=== PATIENT | female | born 1980 | race African-American/Black ===

== ENCOUNTER 2022-09-30 23:00 | Emergency (ER) | payer MEDICAID, OTHER ==
[~2022-09-30] VITALS: Ht 188 cm; Wt 190.1 kg
--- NOTE | 2022-09-30 23:20 | NUR ---
BIBF FROM HOME WITH CC OF LEFT LOWER QUADRANT PAIN. STARTED 1 HR AGO, TOOK IBUPROFEN 800MG WITH NO RELIEF, HX OF DIVERTICULITIS, DM AND THALASSEMIA. PATIENT IS AOX4. ABLE TO MAKE NEEDS KNOWN. PAIN SCALE OF 10/10. PLACED COMFORTABLY IN BED. VITALS CHECKED.
--- NOTE | 2022-09-30 23:35 | NUR ---
18GA TO LEFT HAND ESTABLISHED; BLOOD WORK COLLECTED AND GIVEN TO HOSPITALIST
--- NOTE | 2022-09-30 23:44 | NUR ---
URINE COLLECTED, SENT TO LAB
--- NOTE | 2022-09-30 23:44 | NUR ---
WAIVER SIGNED THAT SHE IS NOT . CALLED RADIOLOGY DEPT FOR PT'S CT
[2022-09-30 23:47] LABS: BASOPHILS # (AUTO) 0.1 K/uL (0.0-0.2); BASOPHILS % (AUTO) 0.5 % (0.0-2.0); EOSINOPHILS % (AUTO) 0.5 % (0.0-6.0); HEMATOCRIT 31 % (33-45); HEMOGLOBIN 8.6 g/dL (11.5-14.8); LYMPHOCYTES % (AUTO) 18.8 % (20.0-44.0); MEAN CORPUSCULAR HGB CONC 28 g/dl (31.0-36.0); MEAN CORPUSCULAR VOLUME 58 fL (82-100); MONOCYTES # (AUTO) 0.8 K/uL (0.1-1.30); MONOCYTES % (AUTO) 8.1 % (2.0-12.0); NEUTROPHILS # (AUTO) 7.5 K/uL (1.8-8.9); NEUTROPHILS % (AUTO) 72.1 % (43.0-81.0); PLATELET COUNT (AUTO) 536 K/uL (150-450); RED BLOOD CELL COUNT(AUTO) 5.33 MIL/uL (4.0-5.2); WHITE BLOOD COUNT (AUTO) 10.4 K/uL (4.3-11.0)
--- NOTE | 2022-09-30 23:58 | NUR ---
PT TAKEN TO CT
--- NOTE | 2022-10-01 00:09 | NUR ---
PT BACK FROM CT
[2022-10-01 00:11] LABS: CALCIUM, SERUM 8.9 mg/dL (8.5-10.1); CREATININE 0.7 mg/dL (0.6-1.3)
[2022-10-01 00:15] LABS: BILIRUBIN,URINE 1+ (NEGATIVE); COLOR,URINE YELLOW (YELLOW); LEUKOCYTE ESTERASE ,URINE 1+ (NEGATIVE); NITRITE, URINE NEGATIVE (NEGATIVE); PH,URINE 5.5 (5.0-8.0); PROTEIN,URINE NEGATIVE (NEGATIVE); UGLUCOSE NEGATIVE (NEGATIVE)
[2022-10-01 00:17] LABS: ALBUMIN 3.2 g/dL (3.4-5.0); BILIRUBIN,DIRECT 0.1 mg/dL (0.0-0.2); BILIRUBIN,TOTAL 0.4 mg/dL (0.2-1.0)
[2022-10-01] MEDS: KETOROLAC TROMETHAMINE INJ 30 MG/ML VIAL IV ONE ×3 (01:00→02:00)
--- NOTE | 2022-10-01 01:15 | NUR ---
TORADOL NOT GIVEN; PATIENT REMOVED OWN IV, REQUESTED TO LEAVE. MADE AWARE.
--- NOTE | 2022-10-01 01:15 | NUR ---
PT REQUESTED TO LEAVE AMA, BUT REFUSED TO SIGN APPROPRIATE FORM.
--- NOTE | 2022-10-01 01:39 | NUR ---
PT REQUESTED DAUGHTER TO HELP HER TO WHEELCHAIR, REFUSES TO LET ANYONE ELSE HELP HER. DAUGHTER AT BEDSIDE, HELPED PATIENT TO GET TO WHEELCHAIR TO BRING PATIENT TO THE CAR.
--- NOTE | 2022-10-01 01:45 | NUR ---
DAUGHTER SPOKE WITH NURSE HOUSE DETECTIVE. BOTH PATIENT AND DTR AGREED TO THE PLAN FOR PATIENT TO STAY AND RECEIVE PAIN MEDICATION.
[2022-10-01] MEDS ORDERED: KETOROLAC TROMETHAMINE 15 MG/ML VIAL ONE (01:59)
--- NOTE | 2022-10-01 02:05 | NUR ---
20GA TO LEFT HAND ESTABLISHED. IV PAIN MEDICATION ADMINISTERED. DAUGHTERS AT BEDSIDE.
[2022-10-01 02:13] LABS: BACTERIA,URINE Rare /HPF (None Seen); SQUAMOUS EPITHELIAL CELL,UR Few /HPF (None Seen)
[2022-10-01] MEDS ORDERED: MORPHINE SULFATE INJ 2 MG/ML DISP.SYRIN ONE (02:30)
[2022-10-01] MEDS ORDERED: MORPHINE SULFATE INJ 2 MG/ML DISP.SYRIN IV ONE (02:30)
[2022-10-01] MEDS ORDERED: OXYC5CAP18 PO (04:03)
[2022-10-01] MEDS ORDERED: CEPH500C2 PO (04:10)
[2022-10-01 04:30] VITALS: BP 149/92
--- NOTE | 2022-10-01 04:30 | NUR ---
Patient discharged to home in stable condition. Written and verbal after care instructions given. Patient verbalizes understanding of instruction. IV removed. Catheter intact and site benign. Pressure and 4x4 applied to site. No bleeding noted.
== END 2022-10-01 04:31 | disposition home or self-care (01) ==
LOC: ER 23:01
DX: D64.9 Anemia, unspecified (principal); R82.81 Pyuria; R31.9 Hematuria, unspecified; R10.32 Left lower quadrant pain; I48.91 Unspecified atrial fibrillation; E11.9 Type 2 diabetes mellitus without complications; Z98.890 Other specified postprocedural states; Z79.899 Other long term (current) drug therapy
CPT/HCPCS: 99285; 74176; 85025; 80048; 87086 ×2; 83690; 80076; 81001; 36415; 96374; 96375; J2270; J1885

== ENCOUNTER 2023-12-11 16:54 | Inpatient (IN) | payer OTHER ==
[~2023-12-11] VITALS: Ht 188 cm; Wt 202.8 kg
[~2023-12-11 16:54] MED LIST: CEPH500C2 PO; OXYC5CAP18 PO
[2023-12-11 17:52] LABS: BASOPHILS % (AUTO) 0.3 % (0.0-2.0); EOSINOPHILS # (AUTO) 0.1 K/uL (0.0-0.7); EOSINOPHILS % (AUTO) 0.6 % (0.0-6.0); HEMATOCRIT 27 % (33-45); HEMOGLOBIN 7.6 g/dL (11.5-14.8); LYMPHOCYTES # (AUTO) 1.6 K/uL (0.8-4.8); LYMPHOCYTES % (AUTO) 16.9 % (20.0-44.0); MEAN CORPUSCULAR HEMOGLOBIN 16 PG (26.0-33.0); MEAN CORPUSCULAR HGB CONC 28 g/dl (31.0-36.0); MEAN CORPUSCULAR VOLUME 56 fL (82-100); MONOCYTES # (AUTO) 0.7 K/uL (0.1-1.30); MONOCYTES % (AUTO) 7.2 % (2.0-12.0); NEUTROPHILS # (AUTO) 7.2 K/uL (1.8-8.9); PLATELET COUNT (AUTO) 497 K/uL (150-450); RED BLOOD CELL COUNT(AUTO) 4.78 MIL/uL (4.0-5.2); RED CELL DISTRIBUTION WIDTH 21.1 % (11.5-15.0); WHITE BLOOD COUNT (AUTO) 9.6 K/uL (4.3-11.0)
[2023-12-11 18:01] LABS: CALCIUM, SERUM 8.6 mg/dL (8.5-10.1); CARBON DIOXIDE 24 mmol/L (21-32); CHLORIDE 103 mmol/L (98-107); CREATININE 0.7 mg/dL (0.6-1.3); GLUCOSE 192 mg/dL (74-106); POTASSIUM 3.9 mmol/L (3.5-5.1); SODIUM SERUM 135 mmol/L (136-145); UREA NITROGEN, BLOOD 8 mg/dL (7-18)
[2023-12-11] MEDS ORDERED: ASPIRIN 325 MG TABLET ONE (18:10)
[2023-12-11] MEDS: ASPIRIN 325 MG TABLET PO ONE (18:15)
[2023-12-11 18:18] LABS: ALANINE AMINOTRANSFERASE 14 U/L (12-78); ALBUMIN 3.1 g/dL (3.4-5.0); ALKALINE PHOSPHATASE 67 U/L (46-116); ASPARTATE AMINOTRANSFERASE 11 U/L (15-37); BILIRUBIN,DIRECT 0.1 mg/dL (0.0-0.2); BILIRUBIN,TOTAL 0.3 mg/dL (0.2-1.0); NT-PRO BNP 787 pg/mL (0-125); TOTAL PROTEIN, SERUM 7.5 g/dL (6.4-8.2)
[2023-12-11] MEDS ORDERED: DILT120C51 PO (18:43)
[2023-12-11] MEDS ORDERED: INSU100I26 SQ (18:43)
[2023-12-11] MEDS ORDERED: DIGO125T PO (18:43)
[2023-12-11] MEDS ORDERED: FURO40TA5 PO (18:43)
[2023-12-11] MEDS ORDERED: [UNRECOGNIZED DRUG - CODE] PO (18:43)
[2023-12-11] MEDS ORDERED: METH10TA7 PO (18:43)
[2023-12-11] MEDS ORDERED: DULA1.5P SQ (18:43)
[2023-12-11] MEDS ORDERED: GABA800T11 PO (18:43)
[2023-12-11] MEDS ORDERED: SEMA1PEN SQ (18:43)
[2023-12-11] MEDS ORDERED: ACET-2605 PO (18:43)
[2023-12-11] MEDS ORDERED: LISI-768 PO (18:43)
[2023-12-11] MEDS ORDERED: APIX5TAB PO (18:43)
[2023-12-11] MEDS ORDERED: GLIP10TA11 PO (18:43)
[2023-12-11] MEDS ORDERED: INSU100I14 SQ (18:43)
[2023-12-11] MEDS ORDERED: EMPA10TA PO (18:43)
[2023-12-11 19:15] LABS: LYMPHOCYTES % (MANUAL) 18 % (16-48); MONOCYTES % (MANUAL) 7 % (0-11.0); NEUTROPHILS % (MANUAL) 75 (42-76)
[2023-12-11 19:16] LABS: ANISOCYTOSIS 1+; HYPOCHROMASIA 1+; PLATELET ESTIMATE INCRE
[2023-12-11 19:18] LABS: OVALOCYTES 1+; STOMATOCYTES 1+; TARGET CELLS 1+
[2023-12-11] MEDS ORDERED: FUROSEMIDE 40 MG/4 ML VIAL ONE (20:01)
[2023-12-11] MEDS: FUROSEMIDE 40 MG/4 ML VIAL IV ONE (20:07)
[2023-12-11 20:15] VITALS: O2SAT 100
[2023-12-11] MEDS ORDERED: MAGNESIUM HYDROXIDE 30 ML UDC PO PRN (21:00)
[2023-12-11] MEDS ORDERED: Z GUARD REMEDY 4 OZ OINT TP PRN (21:00)
[2023-12-11] MEDS ORDERED: ENOXAPARIN SODIUM 40 MG/0.4 ML DISP.SYRIN SQ SCH (21:00)
[2023-12-11] MEDS ORDERED: ACETAMINOPHEN 325 MG TABLET PO PRN (21:00)
[2023-12-11] MEDS ORDERED: Medication Not On Formulary EA (Semaglutide (Ozempic) 1 MG) SQ SCH (21:30)
[2023-12-11] MEDS ORDERED: DULAGLUTIDE 4.5 MG SQ SCH (21:30)
[2023-12-11] MEDS ORDERED: *INSULIN REGULAR(HUMULIN R)HUM 100 UNIT/ML VIAL SQ PRN (22:00)
[2023-12-11] MEDS ORDERED: NITROGLYCERIN PACKET 1 GM PACKET TOP PRN (22:00)
[2023-12-11] MEDS ORDERED: INSULIN REGULAR, HUMAN 100 UNIT/ML 3 ML VIAL SQ SCH (22:00)
[2023-12-11] MEDS ORDERED: DEXTROSE 50%-WATER 50 ML DISP.SYRIN IV PRN (22:00)
[2023-12-11] MEDS: INSULIN GLARGINE, 100 UNIT/ML CARTRIDGE SQ SCH (22:00)
[2023-12-11] MEDS: BLOOD SUGAR DIAGNOSTIC 1 EACH STRIP IN SCH (22:41)
[2023-12-11] MEDS: ZOLPIDEM TARTRATE 5 MG TABLET PO PRN (23:00)
[2023-12-12 00:28] VITALS: BP 104/46; TEMP 98.8; O2SAT 95
[2023-12-12 04:28] VITALS: BP 121/68; TEMP 98.6; O2SAT 98
[2023-12-12] MEDS: GABAPENTIN 400 MG CAPSULE PO SCH (05:31)
[2023-12-12] MEDS: INSULIN REGULAR, HUMAN 100 UNIT/ML 3 ML VIAL SQ PRN (06:14)
[2023-12-12 07:00] VITALS: BP 115/59; TEMP 97.9; O2SAT 99
[2023-12-12 07:13] LABS: BASOPHILS % (AUTO) 0.2 % (0.0-2.0); EOSINOPHILS # (AUTO) 0.1 K/uL (0.0-0.7); EOSINOPHILS % (AUTO) 0.6 % (0.0-6.0); HEMATOCRIT 26 % (33-45); HEMOGLOBIN 7.8 g/dL (11.5-14.8); LYMPHOCYTES # (AUTO) 1.4 K/uL (0.8-4.8); LYMPHOCYTES % (AUTO) 16.7 % (20.0-44.0); MEAN CORPUSCULAR HEMOGLOBIN 17 PG (26.0-33.0); MEAN CORPUSCULAR HGB CONC 30 g/dl (31.0-36.0); MEAN CORPUSCULAR VOLUME 56 fL (82-100); MONOCYTES # (AUTO) 0.6 K/uL (0.1-1.30); NEUTROPHILS # (AUTO) 6.5 K/uL (1.8-8.9); NEUTROPHILS % (AUTO) 75.5 % (43.0-81.0); PLATELET COUNT (AUTO) 480 K/uL (150-450); RED BLOOD CELL COUNT(AUTO) 4.71 MIL/uL (4.0-5.2); RED CELL DISTRIBUTION WIDTH 21.5 % (11.5-15.0); WHITE BLOOD COUNT (AUTO) 8.6 K/uL (4.3-11.0)
[2023-12-12 07:21] LABS: CHOLESTEROL 158 mg/dL (<200); HDL CHOLESTEROL 47 mg/dL (40-60); LDL 94 mg/dL (0-99); TRIGLYCERIDES 94 mg/dL (30-150)
[2023-12-12 07:33] LABS: ALANINE AMINOTRANSFERASE 13 U/L (12-78); ALBUMIN 2.6 g/dL (3.4-5.0); ALKALINE PHOSPHATASE 72 U/L (46-116); ASPARTATE AMINOTRANSFERASE 17 U/L (15-37); BILIRUBIN,DIRECT 0.1 mg/dL (0.0-0.2); BILIRUBIN,TOTAL 0.3 mg/dL (0.2-1.0); CALCIUM, SERUM 8.6 mg/dL (8.5-10.1); CARBON DIOXIDE 26 mmol/L (21-32); CHLORIDE 102 mmol/L (98-107); CREATININE 0.6 mg/dL (0.6-1.3); GLUCOSE 186 mg/dL (74-106); MAGNESIUM 1.6 mg/dL (1.8-2.4); NT-PRO BNP 585 pg/mL (0-125); PHOSPHORUS 5.1 mg/dL (2.5-4.9); SODIUM SERUM 135 mmol/L (136-145); TOTAL PROTEIN, SERUM 7.3 g/dL (6.4-8.2); UREA NITROGEN, BLOOD 6 mg/dL (7-18)
[2023-12-12] MEDS: PANTOPRAZOLE 40 MG TABLET.DR PO SCH (07:39)
[2023-12-12] MEDS: FUROSEMIDE 20 MG/2 ML VIAL IV SCH (08:43)
[2023-12-12] MEDS: LISINOPRIL (5MG) 5 MG TABLET PO SCH (08:44)
[2023-12-12] MEDS: PREGABALIN 25 MG CAPSULE PO SCH (08:44)
[2023-12-12] MEDS: METHIMAZOLE (5MG) 5 MG TABLET PO SCH (08:44)
[2023-12-12] MEDS: glipiZIDE 10 MG TABLET PO SCH (08:45)
[2023-12-12] MEDS: DILTIAZEM HCL CD 120 MG PO SCH (08:45)
[2023-12-12] MEDS: ASPIRIN 81 MG TAB.CHEW PO SCH (08:45)
[2023-12-12] MEDS: DIGOXIN 0.125 MG TABLET PO SCH (08:45)
[2023-12-12] MEDS: PREGABALIN 100 MG CAPSULE PO SCH (08:46)
[2023-12-12] MEDS: EMPAGLIFLOZIN 10 MG TABLET PO SCH (08:46)
[2023-12-12] MEDS: APIXABAN 5 MG TABLET PO SCH (08:52)
[2023-12-12 10:58] LABS: IRON, SERUM 12 ug/dl (50-175); TOTAL IRON BINDING CAPACITY 364 ug/dl (250-450)
[2023-12-12 11:10] LABS: FERRITIN 8 ng/mL (8-388)
[2023-12-12 11:15] LABS: PREGNANCY TEST URINE QUAL NEGATIVE (NEGATIVE)
[2023-12-12 12:00] VITALS: BP 105/62; TEMP 97.9; O2SAT 98
[2023-12-12] MEDS: MAGNESIUM OXIDE 400 MG TABLET PO ONE (12:01)
[2023-12-12] MEDS: ONDANSETRON HCL/PF 4 MG/2 ML VIAL IVP PRN (13:10)
[2023-12-12] MEDS: MAG HYDROX/AL HYDROX/SIMETH 30 ML UDC PO PRN (13:35)
[2023-12-12 16:00] VITALS: BP 101/67; TEMP 97.9; O2SAT 98
[2023-12-12 20:00] VITALS: BP 99/66; TEMP 97.9; O2SAT 99
[2023-12-13] VITALS: BP 89/56; TEMP 98.2; O2SAT 95
[2023-12-13 04:00] VITALS: BP 109/65; TEMP 97.9; O2SAT 99
[2023-12-13 07:48] LABS: CALCIUM, SERUM 9.1 mg/dL (8.5-10.1); CREATININE 0.7 mg/dL (0.6-1.3); MAGNESIUM 2.2 mg/dL (1.8-2.4); PHOSPHORUS 5.3 mg/dL (2.5-4.9); POTASSIUM 3.9 mmol/L (3.5-5.1)
[2023-12-13 08:00] VITALS: BP 110/63; TEMP 98.8; O2SAT 98
[2023-12-13 08:00] LABS: BASOPHILS % (AUTO) 0.4 % (0.0-2.0); EOSINOPHILS # (AUTO) 0.1 K/uL (0.0-0.7); EOSINOPHILS % (AUTO) 0.7 % (0.0-6.0); HEMATOCRIT 29 % (33-45); LYMPHOCYTES # (AUTO) 1.9 K/uL (0.8-4.8); LYMPHOCYTES % (AUTO) 22.4 % (20.0-44.0); MEAN CORPUSCULAR HEMOGLOBIN 16 PG (26.0-33.0); MEAN CORPUSCULAR HGB CONC 28 g/dl (31.0-36.0); MEAN CORPUSCULAR VOLUME 56 fL (82-100); MONOCYTES # (AUTO) 0.7 K/uL (0.1-1.30); MONOCYTES % (AUTO) 7.9 % (2.0-12.0); NEUTROPHILS # (AUTO) 5.7 K/uL (1.8-8.9); NEUTROPHILS % (AUTO) 68.6 % (43.0-81.0); PLATELET COUNT (AUTO) 570 K/uL (150-450); RED BLOOD CELL COUNT(AUTO) 5.13 MIL/uL (4.0-5.2); RED CELL DISTRIBUTION WIDTH 21.5 % (11.5-15.0); WHITE BLOOD COUNT (AUTO) 8.3 K/uL (4.3-11.0)
[2023-12-13 09:00] VITALS: BP 107/53
[2023-12-13 09:18] LABS: NEUTROPHILS % (MANUAL) 73 (42-76)
[2023-12-13 09:19] LABS: ANISOCYTOSIS 2+; BASOPHILS % (MANUAL) 0 % (0.0-2.0); EOSINOPHILS % (MANUAL) 0 % (0-4); HYPOCHROMASIA 2+; LYMPHOCYTES % (MANUAL) 22 % (16-48); MONOCYTES % (MANUAL) 5 % (0-11.0); OVALOCYTES 1+; PLATELET ESTIMATE INCREASED
== END 2023-12-13 13:30 | disposition home or self-care (01) | DRG 194 ==
LOC: ER 17:06 → TELE 20:03
PROVIDERS: ADMIT Nurse Practitioner Family; ATTEND Nurse Practitioner Acute Care
DX: I11.0 Hypertensive heart disease with heart failure (principal); D68.59 Other primary thrombophilia; E46 Unspecified protein-calorie malnutrition; E87.1 Hypo-osmolality and hyponatremia; E88.09 Other disorders of plasma-protein metabolism, not elsewhere classified; I42.9 Cardiomyopathy, unspecified; I48.91 Unspecified atrial fibrillation; Z79.01 Long term (current) use of anticoagulants; E11.9 Type 2 diabetes mellitus without complications; D56.9 Thalassemia, unspecified; D50.9 Iron deficiency anemia, unspecified; E66.9 Obesity, unspecified; Z20.822 Contact with and (suspected) exposure to COVID-19; Z87.19 Personal history of other diseases of the digestive system; Z98.891 History of uterine scar from previous surgery; Z79.4 Long term (current) use of insulin; Z79.899 Other long term (current) drug therapy; Z79.85 Long-term (current) use of injectable non-insulin antidiabetic drugs; Z79.84 Long term (current) use of oral hypoglycemic drugs; I50.33 Acute on chronic diastolic (congestive) heart failure
CPT/HCPCS: 36415; 71045-TC; 80048-TC; 80061-TC; 80076-TC; 80162-TC; 82728-TC; 82962-TC; 83540-TC; 83735-TC; 83880; 84100-TC; 84443-TC; 84484-TC; 84703-TC; 85025-TC; 93307-TC; G0378; J1815; J1940; J2405

== ENCOUNTER 2023-12-24 01:51 | Emergency (ER) | payer OTHER ==
[~2023-12-24] VITALS: Ht 172.7 cm; Wt 136.1 kg
[~2023-12-24 01:51] MED LIST changes: +ACET-2605 PO; +APIX5TAB PO; -CEPH500C2 PO; +DIGO125T PO; +DILT120C51 PO; +DULA1.5P SQ; +EMPA10TA PO; +FURO40TA5 PO; +GABA800T11 PO; +GLIP10TA11 PO; +INSU100I14 SQ; +INSU100I26 SQ; +METH10TA7 PO; -OXYC5CAP18 PO; +SEMA1PEN SQ; +[UNRECOGNIZED DRUG - CODE] PO
--- NOTE | 2023-12-24 01:54 | NUR ---
[id number] FROM HOME FOR SOB HX CHF/AFIB DENIES ANY CP.PLACE IN BED CONNECT TO MONITOR.WAITING FOR ORDERS.
--- NOTE | 2023-12-24 02:23 | NUR ---
MIX CRUSHER OPERATOR AT BEDSIDE
[2023-12-24 02:50] LABS: BASOPHILS % (AUTO) 0.3 % (0.0-2.0); EOSINOPHILS # (AUTO) 0.1 K/uL (0.0-0.7); EOSINOPHILS % (AUTO) 0.8 % (0.0-6.0); HEMATOCRIT 26 % (33-45); HEMOGLOBIN 7.2 g/dL (11.5-14.8); LYMPHOCYTES # (AUTO) 1.6 K/uL (0.8-4.8); LYMPHOCYTES % (AUTO) 21.5 % (20.0-44.0); MEAN CORPUSCULAR HEMOGLOBIN 16 PG (26.0-33.0); MEAN CORPUSCULAR HGB CONC 27 g/dl (31.0-36.0); MEAN CORPUSCULAR VOLUME 57 fL (82-100); MONOCYTES # (AUTO) 0.5 K/uL (0.1-1.30); MONOCYTES % (AUTO) 7.4 % (2.0-12.0); NEUTROPHILS # (AUTO) 5.1 K/uL (1.8-8.9); PLATELET COUNT (AUTO) 495 K/uL (150-450); RED BLOOD CELL COUNT(AUTO) 4.62 MIL/uL (4.0-5.2); RED CELL DISTRIBUTION WIDTH 21.5 % (11.5-15.0); WHITE BLOOD COUNT (AUTO) 7.3 K/uL (4.3-11.0)
[2023-12-24 02:56] LABS: CALCIUM, SERUM 8.6 mg/dL (8.5-10.1); CARBON DIOXIDE 27 mmol/L (21-32); CHLORIDE 103 mmol/L (98-107); CREATININE 0.9 mg/dL (0.6-1.3); GLUCOSE 258 mg/dL (74-106); POTASSIUM 3.9 mmol/L (3.5-5.1); SODIUM SERUM 138 mmol/L (136-145); UREA NITROGEN, BLOOD 10 mg/dL (7-18)
[2023-12-24 03:09] LABS: ALANINE AMINOTRANSFERASE 12 U/L (12-78); ALCOHOL, BLOOD < 3 mg/dL (0-10); ALKALINE PHOSPHATASE 86 U/L (46-116); ASPARTATE AMINOTRANSFERASE 10 U/L (15-37); BILIRUBIN,TOTAL 0.3 mg/dL (0.2-1.0); NT-PRO BNP 381 pg/mL (0-125); TOTAL PROTEIN, SERUM 7.1 g/dL (6.4-8.2)
[2023-12-24 05:00] LABS: AMPHETAMINE, URINE NEGATIVE (NEGATIVE); BARBITURATE, URINE NEGATIVE (NEGATIVE); BENZODIAZEPINE, URINE NEGATIVE (NEGATIVE); CANNABINOID, URINE NEGATIVE (NEGATIVE); COCCAINE, URINE NEGATIVE (NEGATIVE); OPIATE, URINE NEGATIVE (NEGATIVE); PHENCYCLIDINE SCREEN,URINE NEGATIVE (NEGATIVE)
[2023-12-24 05:22] LABS: APPEARANCE,URINE CLEAR (CLEAR); BILIRUBIN,URINE NEGATIVE (NEGATIVE); BLOOD, URINE 3+ Ery/uL (NEGATIVE); COLOR,URINE YELLOW (YELLOW); KETONES,URINE NEGATIVE (NEGATIVE); LEUKOCYTE ESTERASE ,URINE NEGATIVE (NEGATIVE); NITRITE, URINE NEGATIVE (NEGATIVE); PH,URINE 5.5 (5.0-8.0); PREGNANCY TEST URINE QUAL NEGATIVE (NEGATIVE); PROTEIN,URINE 1+ mg/dl (NEGATIVE); UGLUCOSE 1+ mg/dL (NEGATIVE)
[2023-12-24 05:23] LABS: ADD URINE CULTURE NO; BACTERIA,URINE Rare /HPF (None Seen); SQUAMOUS EPITHELIAL CELL,UR Few /HPF (None Seen)
[2023-12-24] MEDS: FUROSEMIDE 40 MG/4 ML VIAL IV ONE (05:23)
[2023-12-24] MEDS ORDERED: FUROSEMIDE 40 MG/4 ML VIAL ONE (05:23)
[2023-12-24 05:27] LABS: ABG BASE EXCESS -0.4 mmol/L (-2.0-3.0); ABG OXYGEN SATURATION 97.6 % (94.0-98.0); ABG PCO2 29.1 mmHg (32.0-45.0); ABG PH 7.502 (7.350-7.450); ABG PO2 101.7 mmHg (83.0-108.0); ABG TOTAL HEMOGLOBIN 8.5 G/dL (12.0-16.0); COHb 0.3 % (0.5-1.5); MetHb 0.4 % (0.0-1.5); O2Hb 96.9 % (94.0-97.0); SITE, ABG Right Radial; VENT MODE, BG ROOM AIR
[2023-12-24 05:48] LABS: MAGNESIUM 1.6 mg/dL (1.8-2.4)
[2023-12-24 05:54] LABS: DIGOXIN < 0.90 ng/mL (0.90-2.00)
[2023-12-24 06:05] VITALS: BP 153/86; TEMP 98.1; O2SAT 95
--- NOTE | 2023-12-24 06:05 | NUR ---
iv cannula removed
--- NOTE | 2023-12-24 06:06 | NUR ---
Patient discharged to home in stable condition. Written and verbal after care instructions given. Patient verbalizes understanding of instruction.
== END 2023-12-24 06:06 | disposition home or self-care (01) ==
LOC: ER 01:52
DX: I48.91 Unspecified atrial fibrillation (principal); I50.9 Heart failure, unspecified; E11.9 Type 2 diabetes mellitus without complications; Z87.19 Personal history of other diseases of the digestive system; Z86.2 Personal history of diseases of the blood and blood-forming organs and certain disorders involving the immune mechanism
CPT/HCPCS: 99285; 96374; 93005; 82803; 71045; 85025; 80162; 83735; 84703; 81001; 36415; 80053; 84484 ×2; 83880; 36600; 80320; 80307; J1940; G0480